=== PATIENT | male | born 1950 | race Caucasian/White ===

== ENCOUNTER 2024-04-09 10:23 | Day surgery (SDC) | payer OTHER, MEDICARE ==
[2024-04-08 14:56] LABS: BASOPHILS # (AUTO) 0.1 X10'3 (0-0.2); BASOPHILS % (AUTO) 0.9 % (0-1); EOSINOPHILS # (AUTO) 0.2 X10'3 (0-0.9); EOSINOPHILS % (AUTO) 3.5 % (0-6); LYMPHOCYTES # (AUTO) 0.9 X10'3 (1.1-4.8); LYMPHOCYTES % (AUTO) 15.1 % (21-51); MEAN CORPUSCULAR HEMOGLOBIN 34.8 PG (27.0-31.0); MEAN CORPUSCULAR HGB CONC 33.9 g/dL (33.0-36.5); MEAN CORPUSCULAR VOLUME 102.5 FL (78-98); MEAN PLATELET VOLUME 8.2 FL (7.4-10.4); MONOCYTES # (AUTO) 0.5 X10'3 (0-0.9); MONOCYTES % (AUTO) 7.7 % (2-12); NEUTROPHILS # (AUTO) 4.3 X10'3 (1.8-7.7); NEUTROPHILS % (AUTO) 72.8 % (42-75); PRE OP HEMATOCRIT 37.8 % (42.0-52.0); PRE OP HEMOGLOBIN 12.8 g/dL (14.0-17.9); PRE OP PLATELET COUNT 150 X10'3 (140-440); PRE OP WHITE BLOOD COUNT 5.9 10'3 (4.8-10.8); RED BLOOD COUNT 3.69 X10'6 (4.70-6.10); RED CELL DISTRIBUTION WIDTH 13.9 % (11.5-14.5)
[2024-04-08 15:14] LABS: ALBUMIN 3.8 G/DL (3.4-5.0); ALBUMIN/GLOBULIN RATIO 1.4 (1.1-1.5); ALKALINE PHOSPHATASE 49 IU/L (46-116); BLOOD UREA NITROGEN 23 MG/DL (7-18); BUN/CREATININE RATIO 24.2 (10.0-20.0); CALCIUM 8.9 MG/DL (8.5-10.1); CHLORIDE 105 MMOL/L (99-107); CREATININE 0.95 MG/DL (0.60-1.10); PRE OP ALT 21 U/L (30-65); PRE OP ANION GAP 5 (8-16); PRE OP AST 18 U/L (10-37); PRE OP BILIRUB, TOTAL 0.5 MG/DL (0.0-1.0); PRE OP GLUCOSE 99 MG/DL (70-104); PRE OP POTASSIUM 4.1 MMOL/L (3.4-5.1); PRE OP SODIUM 139 MMOL/L (135-145); TOTAL CARBON DIOXIDE 29.1 MMOL/L (24-32); TOTAL PROTEIN 6.5 G/DL (6.4-8.2); eGFR 77 ML/MIN
[2024-04-09] VITALS (11 sets, daily range): BP systolic 86–148; BP diastolic 60–103; PULSE 58–73; RESP 12–16; TEMP 98.4; O2SAT 93–100
[~2024-04-09] VITALS: Ht 177.8 cm; Wt 87.5 kg
[2024-04-09] MEDS: cefazolin 2gm/D5W 100mL 100 ML IV ONE (05:30)
[~2024-04-09 10:23] MED LIST: AMLO2.5T2 PO; AMYL1CAP56 PO; ASPI81TA52 PO; CHOL50CA2 PO; CYAN500T71 PO; DOCUMENT DATE & TIME OF BETA-BLOCKER PO ONE; GABA-530 PO; LABE100T8 PO; LISI20TA28 PO; OMEP20TA23 PO; ROSU40TA71 PO; SYN0.088T PO; TRAZ150T78 PO
[2024-04-09] MEDS: ringers solution, lacted 1,000 ML IV SCH (10:53)
[2024-04-09] MEDS: famotidine 20mg tablet PO ONE (10:53)
[2024-04-09] MEDS ORDERED: BUPIVAcaine 2.5mg/ml inj 50ml vial (contains preservative) ONE (12:05)
[2024-04-09] MEDS ORDERED: bacitracin 15gm ointment TP ONE (12:05)
[2024-04-09] MEDS ORDERED: ondansetron/PF 4mg/2ml inj ONE (12:54)
[2024-04-09] MEDS ORDERED: dexamethasone sod phosphate 4mg/ml inj. ONE (12:54)
[2024-04-09] MEDS ORDERED: acetaminophen 1,000mg/100ml IV 100 ML IV ONE (12:54)
[2024-04-09] MEDS ORDERED: midazolam 1 mg/ML 2ml injection ONE (12:54)
[2024-04-09] MEDS ORDERED: propofol inj 20 ML IV ONE (12:54)
[2024-04-09] MEDS ORDERED: ROPIVAcaine 0.5% (5mg/ml) 30ml vial ONE (12:54)
[2024-04-09] MEDS ORDERED: fentaNYL/PF 50MCG/1 ML 2ML syringe ONE (12:54)
[2024-04-09] MEDS ORDERED: LIDOcaine 2% (20mg/ml) 5ml vial ONE (12:54)
[2024-04-09] MEDS ORDERED: ePHEDrine 50MG/ML INJ. ONE (14:53)
[2024-04-09] MEDS ORDERED: ondansetron/PF 4mg/2ml inj IV PRN (15:00)
[2024-04-09] MEDS ORDERED: hydrALAZINE 20mg/ml inj. IV PRN (15:00)
[2024-04-09] MEDS ORDERED: morphine 4 MG/ML inj SYRINge IV PRN (15:00)
[2024-04-09] MEDS ORDERED: fentaNYL/PF 50MCG/1 ML 2ML syringe IV PRN ×2 (15:00)
[2024-04-09] MEDS ORDERED: ringers solution, lacted 1,000 ML IV SCH (15:00)
[2024-04-09] MEDS ORDERED: morphine 2 MG/ML inj. syringe IV PRN (15:00)
[2024-04-09] MEDS ORDERED: labetalol 20mg/4ml (5mg/ml) syringe IV PRN (15:00)
[2024-04-09] MEDS: bacitracin 15gm ointment TP ONE (15:10)
== END 2024-04-09 16:39 | disposition home or self-care (01) ==
LOC: PAS 10:23
PROVIDERS: ATTEND Podiatrist Foot & Ankle Surgery
DX: M20.11 Hallux valgus (acquired), right foot (principal); M25.374 Other instability, right foot; G89.18 Other acute postprocedural pain; I11.9 Hypertensive heart disease without heart failure; E03.9 Hypothyroidism, unspecified; E78.5 Hyperlipidemia, unspecified; K21.9 Gastro-esophageal reflux disease without esophagitis; J44.9 Chronic obstructive pulmonary disease, unspecified; G47.30 Sleep apnea, unspecified; F43.10 Post-traumatic stress disorder, unspecified; Z87.891 Personal history of nicotine dependence; Z79.82 Long term (current) use of aspirin; Z79.891 Long term (current) use of opiate analgesic; Z79.899 Other long term (current) drug therapy; Z90.49 Acquired absence of other specified parts of digestive tract; Z96.653 Presence of artificial knee joint, bilateral; Z98.890 Other specified postprocedural states
CPT/HCPCS: 28299; 36415; 64450; 73620; 80053; 82948; 85025; 93005; A6222; C1713; J0131; J0690; J1100; J2250; J2405; J2704; J2795; J3010; J3490; J7030; J7120; Z7506; Z7508; Z7512; 76000; A4615; A4618; A6449; A7000